=== PATIENT | female | born 2000 | race Caucasian/White ===

== ENCOUNTER 2020-12-30 00:01 | Emergency (ER) | payer OTHER ==
[2020-12-30] MEDS ORDERED: Bacitracin Oint 1 GM U/D Packet TOP ONE (00:55)
[2020-12-30] MEDS ORDERED: Diphtheria,Pertussis(Acell),Tetanus Vaccine 0.5 ML Syringe IM ONE (00:55)
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
== END 2020-12-30 01:30 | disposition home or self-care (01) ==
LOC: MW.ED 00:01
DX: S81.812A Laceration without foreign body, left lower leg, initial encounter (principal); Z88.8 Allergy status to other drugs, medicaments and biological substances; Z23 Encounter for immunization; W22.8XXA Striking against or struck by other objects, initial encounter
CPT/HCPCS: 12002; 90471; 90715; 99282